=== PATIENT | male | born 1955 | race Hispanic/Latino ===

== ENCOUNTER 2021-03-04 07:22 | Day surgery (SDC) | payer OTHER ==
[2021-03-01 14:45] LABS: BASOPHILS % (AUTO) 0.4 % (0.0-5.0); EOSINOPHILS % (AUTO) 1.7 % (0.0-8.0); HEMATOCRIT 46.7 % (42-54); MEAN CORPUSCULAR HEMOGLOBIN 29.9 pg (27.0-33.0); MEAN CORPUSCULAR HGB CONC 33.4 g/dL (32.0-36.0); MEAN CORPUSCULAR VOLUME 89.5 fL (79-99); MONOCYTES % (AUTO) 10.1 % (3.0-13.0); NEUTROPHILS % (AUTO) 61.9 % (40.0-77.0); PLATELET COUNT (AUTO) 182 K/uL (130-400); RED BLOOD CELL COUNT(AUTO) 5.22 MIL/uL (4.50-6.20); RED CELL DISTRIBUTION WIDTH 13.1 % (11.0-15.5)
[2021-03-01 14:55] LABS: CREATININE 1.1 mg/dL (0.5-1.5); POTASSIUM 4.6 mmol/L (3.5-5.1)
[2021-03-01 18:16] VITALS: BP 136/80
[2021-03-04] VITALS (16 sets, daily range): BP systolic 127–162; BP diastolic 79–87
[~2021-03-04] VITALS: Ht 177.8 cm; Wt 101.6 kg
[~2021-03-04 07:22] MED LIST: FINA5TAB41 PO; LOSA50TA64 PO
[2021-03-04] MEDS ORDERED: MIDAZOLAM HCL 1 MG/ML 2ML VIAL ONE (08:23)
[2021-03-04] MEDS ORDERED: LIDOCAINE PF 100MG/5ML (2%) SYRINGE 5ML ONE ×2 (08:23→08:24)
[2021-03-04] MEDS ORDERED: GLYCOPYRROLATE 1 MG/5 ML SYRINGE ONE (08:23)
[2021-03-04] MEDS ORDERED: DEXAMETHASONE SOD PHOSPHATE 10MG/ML 1ML VIAL ONE (08:23)
[2021-03-04] MEDS ORDERED: SUCCINYLCHOLINE 200MG/10ML SYR ONE ×2 (08:23→08:25)
[2021-03-04] MEDS ORDERED: PROPOFOL 10 MG/ML 20ML VIAL IV ONE (08:24)
[2021-03-04] MEDS ORDERED: ROCURONIUM 10MG/1ML SYR 10 MG/ML ML ONE (08:24)
[2021-03-04] MEDS ORDERED: FENTANYL CITRATE PF 50 MCG/1 ML 2ML VIAL ONE (08:24)
[2021-03-04] MEDS ORDERED: NEOSTIGMINE 5MG/5ML SYR IV ONE (08:24)
[2021-03-04] MEDS ORDERED: LACTATED RINGERS 1000ML 1,000 ML IV ONE (08:35)
[2021-03-04] MEDS ORDERED: TADA5TAB5 PO (08:49)
[2021-03-04] MEDS: CEFTRIAXONE 1G VIAL IVP ONE ×2 (08:50→09:20)
[2021-03-04] MEDS ORDERED: PHENAZOPYRIDINE HCL 200 MG TABLET ONE (11:46)
== END 2021-03-04 12:00 | disposition home or self-care (01) ==
LOC: DAH 07:22
PROVIDERS: ATTEND Urology
DX: N32.0 Bladder-neck obstruction (principal); Z20.822 Contact with and (suspected) exposure to COVID-19; R35.1 Nocturia; I10 Essential (primary) hypertension; Z85.46 Personal history of malignant neoplasm of prostate; Z79.899 Other long term (current) drug therapy
CPT/HCPCS: 36415; 52640; 80048; 85025; 87635; A4215; A4221; A4222; A4223; A4344; A4354; A4358 ×2; A4600; A6260; C1769; C9803; J0330 ×2; J0696; J1100; J2001 ×2; J2250; J2704; J2710; J3010; J3490; J7030; J7120 ×2

== ENCOUNTER 2021-10-25 06:49 | Day surgery (SDC) | payer OTHER ==
[2021-10-23 12:11] LABS: BASOPHILS % (AUTO) 0.5 % (0.0-5.0); EOSINOPHILS % (AUTO) 1.3 % (0.0-8.0); HEMATOCRIT 44.7 % (42-54); LYMPHOCYTES % (AUTO) 25.3 % (21.0-51.0); MEAN CORPUSCULAR HEMOGLOBIN 29.8 pg (27.0-33.0); MEAN CORPUSCULAR HGB CONC 33.6 g/dL (32.0-36.0); MEAN CORPUSCULAR VOLUME 88.7 fL (79-99); MONOCYTES % (AUTO) 8.1 % (3.0-13.0); NEUTROPHILS % (AUTO) 64.2 % (40.0-77.0); PLATELET COUNT (AUTO) 176 K/uL (130-400); RED BLOOD CELL COUNT(AUTO) 5.04 MIL/uL (4.50-6.20); RED CELL DISTRIBUTION WIDTH 12.6 % (11.0-15.5); WHITE BLOOD COUNT (AUTO) 8.6 K/uL (4.8-10.8)
[2021-10-23 12:27] LABS: CREATININE 1.1 mg/dL (0.5-1.5); POTASSIUM 4.6 mmol/L (3.5-5.1)
[2021-10-24 12:17] VITALS: BP 131/79
[2021-10-25] VITALS (17 sets, daily range): BP systolic 97–152; BP diastolic 54–86
[~2021-10-25] VITALS: Ht 177.8 cm; Wt 99.3 kg
[~2021-10-25 06:49] MED LIST changes: +ATOR20TA65 PO; -FINA5TAB41 PO
[2021-10-25] MEDS ORDERED: LACTATED RINGERS 1000ML 1,000 ML IV ONE (07:20)
[2021-10-25] MEDS: CEFTRIAXONE 1G VIAL IVP ONE ×2 (07:29→08:35)
[2021-10-25] MEDS ORDERED: PROPOFOL 10 MG/ML 20ML VIAL IV ONE (08:29)
[2021-10-25] MEDS ORDERED: MIDAZOLAM HCL 1 MG/ML 2ML VIAL ONE (08:32)
[2021-10-25] MEDS ORDERED: FENTANYL CITRATE PF 50 MCG/1 ML 2ML VIAL ONE (08:43)
[2021-10-25] MEDS ORDERED: GLYCOPYRROLATE 1 MG/5 ML SYRINGE ONE (08:45)
[2021-10-25] MEDS ORDERED: ONDANSETRON 4MG INJ ONE (08:58)
[2021-10-25] MEDS ORDERED: PHENAZOPYRIDINE HCL 200 MG TABLET ONE (10:41)
== END 2021-10-25 11:10 | disposition home or self-care (01) ==
LOC: DAH 06:49
PROVIDERS: ATTEND Urology
DX: N32.0 Bladder-neck obstruction (principal); R39.14 Feeling of incomplete bladder emptying; I10 Essential (primary) hypertension; E78.5 Hyperlipidemia, unspecified; I25.10 Atherosclerotic heart disease of native coronary artery without angina pectoris; Z98.890 Other specified postprocedural states; Z79.899 Other long term (current) drug therapy; Z90.79 Acquired absence of other genital organ(s)
CPT/HCPCS: 36415; 52640; 80048; 85025; 87635; 93005; A4215; A4221; A4222; A4223; A4344; A4358; A4600; A4663; A5113; C9803; J0696; J2250; J2405; J2704; J3010; J3490; J7120 ×2